=== PATIENT | male | born 1955 | race Caucasian/White ===

== ENCOUNTER 2020-02-05 08:45 | Outpatient (REF) | payer OTHER, SELFPAY ==
[2020-02-05 11:49] LABS: Estimated Average Glucose 134 mg/dL; Hemoglobin A1c % 6.3 %
[2020-02-05 11:59] LABS: Anion Gap 11 (12-20); Blood Urea Nitrogen 19 mg/dL (9-16); Calcium 8.9 mg/dL (8.4-10.2); Carbon Dioxide 30 mmol/L (22-29); Chloride 102 mmol/L (96-108); Estimated Glomerular Filt Rate > 60; Glucose Fasting 128 mg/dL (60-99); Potassium 4.2 mmol/l (3.3-5.1); Sodium 139 mmol/L (135-145)
[2020-02-05 12:05] LABS: Prostate Specific Antigen Scr 2.23 ng/mL (<0.05-4.0); TSH reflex Free T4 0.48 mIU/mL (0.32-4.0)
== END 2020-02-05 08:46 | disposition home or self-care (01) ==
LOC: HO.HMGCLDS 08:45
PROVIDERS: PCP Internal Medicine; Visit Provider Internal Medicine
DX: R73.9 Hyperglycemia, unspecified (principal); I10 Essential (primary) hypertension; Z00.00 Encounter for general adult medical examination without abnormal findings
CPT/HCPCS: 80048; 83036; 84153; 84443

== ENCOUNTER → 2020-02-14 07:38 | Outpatient (REF) | payer OTHER, SELFPAY ==
--- NOTE | 2020-02-14 07:42 | CA_ITS ---
Transthoracic Echocardiogram Patient (Last, First, Middle): Guille Mercado, Gender: Male Date of : 1955 Age: 64 Procedure Date: 02/14/2020 Procedure Type: Transthoracic Echocardiogram Location: OP Height: 180.34 cm Weight: 97.98 kg BSA: 2.18 m2 Heart Rate: bpm BP: 130 / 70 mmHg [place] Operator: ALDEN Payan MD: Yue Miller MD Symptoms: I48.91 - Unspecified atrial fibrillation Study Quality: Fair ECG Rhythm: Atrial Fibrillation Conclusions: - The left ventricular systolic function is low normal. The visually estimated ejection fraction is between 50-55%. - The left atrium is severely dilated. - There is mild to moderate mitral valve regurgitation. - There is mild tricuspid valve regurgitation. - Mild pulmonary hypertension is present. Findings Left Ventricle Normal left ventricular cavity size. There is mildly increased left ventricular wall thickness. The left ventricular systolic function is low normal. The visually estimated ejection fraction is between 50-55%. There is no evidence of regional wall motion abnormalities. Diastolic function is indeterminate on the basis of available data. Right Ventricle Normal right ventricular cavity size and systolic function. Atria The left atrium is severely dilated. The right atrium is moderately dilated. Aortic Valve There is a normal trileaflet aortic valve. There is no aortic valve stenosis. There is no aortic valve regurgitation. Mitral Valve There is mild anterior and posterior mitral leaflet thickening. The posterior mitral leaflet has restricted mobility. There is mild mitral annular calcification. There is mild to moderate mitral valve regurgitation. There is no mitral valve stenosis. Pulmonic Valve The pulmonic valve was not well visualized. Tricuspid Valve Normal tricuspid valve structure. There is mild tricuspid valve regurgitation. The right ventricular systolic pressure is 46 mmHg. Mild pulmonary hypertension is present. Great Vessels The aortic annulus, sinuses of valsalva, and asc aorta are normal in size. Venous The inferior vena cava is mildly dilated and collapses greater than 50% with inspiration. Pericardium/Pleural There is no evidence of pericardial effusion. Prior Study Comparison No prior study available for comparison. Measurements 2D Linear Measurements IVSd: 1.12 0.6-0.9/0.6-1.0 cm LVIDd: 5.29 3.9-5.3/4.2-5.9 cm LVIDd Index: 2.43 2.4-3.2/2.2-3.1 cm/m2 LVIDs: 3.85 2.0-3.6 cm LVPWd: 1.12 0.7-1.1 cm Ao Root: 3.40 2.1-3.5 cm LA Diam: 4.50 2.7-3.8/3.0-4.0 cm LAIDs Index: 2.06 1.5-2.3 cm/m2 LV Mass: 290.08 67-162/88-224 g LV Mass Index: 133.06 43-95/49-115 g/m2 LVOT Diam: 2.10 3.0+(-)1.3 cm 2D Systolic Function EF 4C: 51.40 >55% EF 2C: 50.70 >55% EF BiP: 51.70 >55% Mitral Valve MV VTI: 0.51 MV Pk Ruy: 2.12 MV Mn Ruy: 0.82 MV Pk Grad: 18.00 MV Mn Grad: 4.00 MVA Continuity: 1.30 Aortic Valve AoV Pk Ruy: 1.14 AoV Mn Ruy: 0.70 AoV VTI: 0.25 AoV Pk Grad: 5.00 Aov Mn Grad: 2.00 SONU Cont.VTI: 2.69 LVOT LVOT Pk Ruy: 0.86 LVOT Mn Ruy: 0.57 LVOT VTI: 0.19 LVOT Pk Grad: 3.00 LVOT Mn Grad: 1.00 LVOT Diam: 2.10 LVOT Area: 3.46 Tricuspid Valve TR Pk Ruy: 3.09 TR Pk Grad: 38.00 RA Press: 8.00 RVSP: 46.00 Great Vessels Aorta Ao Root-2D: 3.40 2.0-3.7 cm Ao Asc: 3.40 2.1-3.4 cm Ao Arch: 3.50 Updated in Other Vendor System with Status of Final Pete Saucedo MD electronically signed on 02/16/2020 1:57:19 PM with status of Final
== END ==
LOC: HO.CARD 07:38
PROVIDERS: Visit Provider Internal Medicine
DX: I48.91 Unspecified atrial fibrillation (principal)
CPT/HCPCS: 93306

== ENCOUNTER → 2020-02-26 13:39 | Outpatient (REF) | payer OTHER, SELFPAY ==
--- NOTE | 2020-02-26 13:41 | ECG_ITS ---
Hook-up date: 2020-02-26 13:53:00 Duration: 25:00:00 Test Indications: UNSPEC. AFIB Medications: 48176 QRS complexes 16 Ventricular ectopics which represent <1 % of total QRS comp. * Supraventricular ectopics which represent % of total QRS comp. * Paced QRS complexs which represent % of total QRS comp. VENTRICULAR ECTOPY 16 Isolated 0 Bigeminal Cycles 0 Couplets 0 Runs 0 Beats in Runs * Beats LONGEST at * BPM at :: -- * Beats FASTEST at * BPM at :: -- SUPRAVENTRICULAR ECTOPY * Isolated * Couplets * Runs * Beats in Runs * Beats LONGEST at * BPM at :: -- * Beats FASTEST at * BPM at :: -- HEART RATES 30 MIN at 02:29:59 2020-02-27 62 AVG 119 MAX at 17:07:51 2020-02-26 LONGEST RR 3.0400 secs at 03:56:07 2020-02-27 S-T LEVELS Channel 1 - 128 mm at 13:53:00 2020-02-26 - 128 mm at 13:53:00 2020-02-26 Channel 2 - 128 mm at 13:53:00 2020-02-26 - 128 mm at 13:53:00 2020-02-26 Channel 3 - 128 mm at 03:31:21 -- - 128 mm at 03:31:21 Underlying rhythm is atrial fibrillation; Average ventricular rate 62/mi; range 30-119/min; No significant tachycardic episodes; About 40% of the time, ventricular rate <60/min; Nighttime pauses noted; max 3 sec, but no significant daytime pauses; Patient did not return diary Referred By: Yue Miller Overread By: MARTINA CASTILLO
== END ==
LOC: HO.CARD 13:39
PROVIDERS: Visit Provider Internal Medicine
DX: I48.91 Unspecified atrial fibrillation (principal)
CPT/HCPCS: 93225; 93226

== ENCOUNTER → 2020-02-29 14:00 | Outpatient (BNVA) | payer OTHER, SELFPAY | PROVIDERS: PCP Internal Medicine; Visit Provider Physician Assistant Medical | DX: Z76.89 Persons encountering health services in other specified circumstances (principal) | CPT/HCPCS: G0296 ==

== ENCOUNTER 2020-03-28 13:18 | Outpatient (REF) | payer OTHER, SELFPAY ==
--- NOTE | ~2020-03-28 | CT_ITS ---
EXAMINATION: CT CHEST SCREENING CLINICAL INFORMATION: Smoking history COMPARISON: None. TECHNIQUE: Multidetector volumetric CT imaging of the chest is performed without contrast using low dose technique. Additional 2D coronal and sagittal reformatted images and axial 3D maximum intensity projection (MIP) images are generated on the CT workstation. This CT examination was performed using dose optimization techniques as appropriate, variously including the following: *Automated exposure control *Adjustment of mA and/or kV according to patient size (this includes techniques or standardized protocols for targeted exams where dose is matched to indication/reason for exam; i.e. extremities or head) *Use of iterative reconstruction technique DLP: 63 mGy-cm FINDINGS: LUNGS: There is evidence of emphysema. There is a 3 mm right upper lobe nodule axial image 117 series 5. There are 2 peripheral or subpleural 2 mm right upper lobe nodules axial image 134 and 141 series 5. MEDIASTINUM: The heart is slightly enlarged. There is mild coronary artery calcification. There is no pericardial effusion. The thoracic aorta is normal in caliber. There are small mediastinal lymph nodes. PLEURA: There is no pleural effusion. No pleural mass or thickening. AXILLA: No lymphadenopathy. UPPER ABDOMEN: Unremarkable OSSEOUS STRUCTURES: There are degenerative changes of the spine. CT/CT lung screening IMPRESSION: Mild emphysema. Small pulmonary nodules. Enlarged heart. Mild coronary artery calcification. ASSESSMENT: Lung-RADS category 2: Benign RECOMMENDATION: Annual low-dose chest CT follow-up in one year
== END 2020-03-28 13:19 | disposition home or self-care (01) ==
LOC: HO.CT 13:18
PROVIDERS: PCP Internal Medicine; Visit Provider Physician Assistant Medical
DX: Z12.2 Encounter for screening for malignant neoplasm of respiratory organs (principal); F17.210 Nicotine dependence, cigarettes, uncomplicated
CPT/HCPCS: 71271

== ENCOUNTER 2020-08-28 10:29 | Outpatient (REF) | payer OTHER, SELFPAY ==
[2020-08-28 11:32] LABS: Hematocrit 40.4 % (42-52); Hemoglobin 13.1 g/dl (14.0-18.0); Mean Corpuscular HGB Conc 32.4 g/dl (31.0-36.0); Mean Corpuscular Hemoglobin 27.5 pg (27.0-33.0); Mean Corpuscular Volume 84.7 fL (80-98); Mean Platelet Volume 11.9 fL (9.4-12.4); Platelet Count 112 X10*3/uL (160-400); Red Blood Count 4.77 X10*6/uL (4.60-5.80); Red Cell Distribution Width 13.8 % (11.0-16.0); White Blood Count 6.4 X10*3/uL (4.8-10.8)
[2020-08-28 11:36] LABS: Estimated Average Glucose 131 mg/dL; Hemoglobin A1c % 6.2 %
[2020-08-28 12:15] LABS: Alanine Aminotransferase 41 U/L (0-40); Albumin Level 4.1 g/dL (3.5-5.0); Alkaline Phosphatase 125 U/L (39-117); Anion Gap 13 (12-20); Aspartate Amino Transferase 34 U/L (5-37); Bilirubin Total 1.5 mg/dL (0.0-1.0); Blood Urea Nitrogen 17 mg/dL (9-16); C Reactive Protein 2.37 mg/dL (< or = 0.50); Carbon Dioxide 25 mmol/L (22-29); Chloride 103 mmol/L (96-108); Estimated Glomerular Filt Rate > 60; Glucose Random 104 mg/dL (60-115); Sodium 137 mmol/L (135-145); Total Protein 7.8 g/dL (6.5-8.0)
[2020-08-28 14:32] LABS: Glucose Urine UA NEG (NEG); Leukocyte Esterase Urine NEG (NEG); Nitrite Urine NEG (NEG); Specific Gravity - Urine 1.015 (1.005-1.025); Urine Blood NEG (NEG); Urine Ketones NEG (NEG); Urine Protein NEG (NEG-TRACE)
[2020-08-28 14:51] LABS: Appearance Urine CLEAR; Color Urine YELLOW
== END 2020-08-28 10:30 | disposition home or self-care (01) ==
LOC: HO.HMGCLDS 10:29
PROVIDERS: PCP Internal Medicine; Visit Provider Internal Medicine
DX: Z20.822 Contact with and (suspected) exposure to COVID-19 (principal); I10 Essential (primary) hypertension; I48.91 Unspecified atrial fibrillation; R73.9 Hyperglycemia, unspecified; M79.10 Myalgia, unspecified site
CPT/HCPCS: 80053; 81003; 83036; 85027; 86140; U0003; U0005

== ENCOUNTER 2020-08-31 11:16 | Emergency (ER) | payer OTHER, SELFPAY ==
--- NOTE | ~2020-08-31 | XR_ITS ---
EXAMINATION: XR chest 2V CLINICAL INFORMATION: Cough COMPARISON: No prior chest x-ray available in our system for comparison at the time of this dictation. TECHNIQUE: XR chest 2V Lungs and Ernestine: Both lungs are clear. Pleura: Normal. Costophrenic angles are sharp. No pneumothorax. Heart: The heart is normal in size. Mediastinum: The mediastinum is within normal limits.. Bones: Skeletal structures included are normal for patient's age. XR/XR chest 2V IMPRESSION: No radiographic evidence of pneumonia.
--- NOTE | ~2020-08-31 | CT_ITS ---
EXAMINATION: CT ANGIOGRAM ABDOMEN AND PELVIS CLINICAL INFORMATION: Rule out mesenteric ischemia, perforation, obstruction COMPARISON: None TECHNIQUE: Multiple axial images were obtained through the abdomen and pelvis following the administration of 80 mL of Omnipaque 350 intravenous contrast in arterial and venous phases. Coronal and sagittal reformatted MPR and MIPSimages were generated at the technologist workstation. This CT examination was performed using dose optimization techniques as appropriate, variously including the following: *Automated exposure control *Adjustment of mA and/or kV according to patient size (this includes techniques or standardized protocols for targeted exams where dose is matched to indication/reason for exam; i.e. extremities or head) *Use of iterative reconstruction technique DLP: 1037 mGy-cm FINDINGS: VASCULAR: The aorta is normal in caliber. There is no aneurysm, dissection or other acute aortic syndrome. There is moderate eccentric wall calcification as well as noncalcified plaque at the distal aspect of the abdominal aorta. Iliac bifurcation is patent. The right common iliac artery is ectatic and measures up to 1.5 cm in diameter. The bilateral common, internal, and external iliac arteries are well opacified and while there is scattered disease, there is no significant stenosis. While there is peripheral calcification of the common femoral arteries, there is no significant stenosis. The visualized profunda femoral arteries and superficial femoral arteries are patent and there is mild narrowing at the origin of the right superficial femoral artery secondary to noncalcified plaque appear Minimal narrowing at the origin of the celiac trunk which is otherwise well opacified. Superior mesenteric artery is widely patent from its origin. There is mild stenosis at the origin of the inferior mesenteric artery, though the vessels otherwise well opacified. There are single renal arteries to each kidney. There is minimal calcific disease at the origin of each renal artery, though there is no significant stenosis. On venous phase images there is an unremarkable appearance of the iliac veins, inferior vena cava and renal veins which are patent. Unremarkable appearance of the hepatic veins. Amanda mesenteric venous system is patent and without stenosis or thrombosis. NONVASCULAR: Lung bases are clear. No pleural fluid collections. Imaged heart is unremarkable. The liver is normal in size, shape and attenuation. No focal hepatic lesions are identified. No intra or extrahepatic duct dilation is identified. The gallbladder is unremarkable. There are no gallstones or pericholecystic inflammatory changes. Pancreas is unremarkable. The spleen is enlarged and measures up to 19 cm in the axial plane. Parenchymal enhancement is heterogeneous, possibly secondary to contrast timing. The adrenal glands are unremarkable. The kidneys are equal in overall size and enhancement. There is a 7.5 cm exophytic cyst arising from the lower pole of the left kidney with no internal features. There is a 1.2 cm simple parapelvic cyst at the lower pole of the left kidney. At the anterior aspect of the lower pole left kidney there is an indeterminate 1.9 cm low to intermediate attenuation structure with focal cortical thinning. An indeterminate 1 cm cystic structure originating from the anterior and a 1.5 cm cyst arises from the posterior aspect of the right lower pole.. Additional simple cysts are present at the upper pole of the right kidney. No calculi, hydronephrosis or hydroureter. No ureteral calculi are seen. Bladder is partially distended and normal in contour. Prostate is at the upper limits of normal for size and there are central coarse calcifications within the prostate. The distal esophagus and stomach are unremarkable. The small and large bowel are normal in caliber. There are no bowel wall inflammatory changes. There is a normal appendix. There is fecalization of the distal ileal contents, a nonspecific finding which can be seen with functional processes such as constipation. No pathologically enlarged abdominopelvic or retroperitoneal lymph nodes are seen. No free intraperitoneal fluid or air. No significant hernia of the abdominal wall. There is minor rectus diastases. There are [id number] multilevel degenerative changes of the imaged thoracolumbar spine. There is a probable 4 mm bone island within the right iliac crest (image 438, series 6). Moderate degenerative changes of osteoarthritis of the hips. No acute or aggressive bony abnormality is seen. CT/CT angio abdomen pelvis IMPRESSION: Patent arterial and venous vasculature of the abdomen and pelvis. No definite findings to suggest mesenteric ischemia. Specifically there are no evidence of vascular thrombosis, occlusion, portal venous gas or pneumatosis. There is splenomegaly with spleen measuring 19 cm in the axial plane. On venous phase enhancement is slightly heterogeneous, this could be secondary to contrast timing. Nonspecific fecalization of distal ileal contents which can be seen in the setting of functional processes such as constipation. There are indeterminate low-attenuation structures at the lower pole of each kidney measuring 1.9 cm on the left and 1 cm on the right. Further characterization with MR is recommended.
[2020-08-31 11:20] VITALS: BP 136/68; PULSE 73; RESP 18; TEMP 37.2; O2SAT 100; BMI 29.2
--- NOTE | 2020-08-31 11:56 | ECG_ITS ---
Test Reason : ABDOMINAL PAIN Blood Pressure : / mmHG Vent. Rate : 076 BPM Atrial Rate : 102 BPM P-R Int : 000 ms QRS Dur : 090 ms QT Int : 386 ms P-R-T Axes : 000 081 051 degrees QTc Int : 434 ms Atrial fibrillation Abnormal ECG No previous ECGs available Referred By: José Miguel Pedro Electronically Signed By:Murtaza Alvarado
--- NOTE | 2020-08-31 11:58 | ED.ABDPAIN ---
HPI - Abdominal Pain General Chief Complaint: Abdominal Pain Stated Complaint: severe abd pain Time Seen by Provider: 08/31/20 11:30 History of Present Illness HPI narrative: Patient complains of abdominal pain which he describes as severe for the last 5 or 6 days which is mostly in the mid abdominal region, there is no fever no chills no nausea no vomiting no diarrhea no dysuria, pain is not related to eating or drinking Patient saw primary doctor for this 2 days ago and labs were sent which were nondiagnostic Patient has history of atrial fibrillation and hypertension and does take Eliquis for his atrial fibrillation and is compliant with the medication He does drink occasionally but is not a regular drinker Related Data Previous Rx's Medication Instructions Recorded atenolol 25 mg tablet 25 mg PO DAILY #90 tab 04/15/20 apixaban 5 mg tablet 5 mg PO BID #180 tab 07/08/20 amlodipine 5 mg tablet 5 mg PO DAILY #90 tab 08/06/20 acetaminophen 1,000 mg PO QID PRN #30 tab 08/31/20 doxycycline hyclate 100 mg PO BID 7 Days #14 cap 08/31/20 oxycodone 5 mg PO Q6H PRN #10 tab 08/31/20 Allergies Allergy/AdvReac Type Severity Reaction Status Date / Time No Known Allergies Allergy Verified 08/31/20 11:20 Review of Systems Review of Systems Positive for abdominal pain Negatives are no fever no chills no dizziness no weakness no fainting no feeling faint no headache no chest pain no dysuria no frequency no nausea vomiting or diarrhea no black tarry stools no blood in the stool no blood in the urine no skin rashes no motor weakness no loss of sensation Yes all other systems are reviewed and are negative Physical Exam Vital Signs: Vital Signs: Last Vital Signs Temp 99.5 F 08/31/20 16:09 Pulse 76 08/31/20 16:09 Resp 20 08/31/20 16:09 BP 125/69 08/31/20 16:09 Pulse Ox 96 08/31/20 16:09 Body Mass Index 29.2 General appearance is no acute distress The eyes are anicteric without pallor The pharynx mucous membranes are moist, no redness swelling or exudate The neck is supple The chest is clear to auscultation bilateral with symmetric equal breath sounds Heart no murmur auscultated The abdomen had mild periumbilical mid abdomen tenderness without rebound or guarding The extremities full range of motion x4 without edema The skin no rashes no petechiae no purpura Neuro there is no gross motor or sensory deficit, he is A&O x3, conversation both expression and comprehension are normal, gait and balance are normal Course Course Course Narrative: Patient with AFib on Eliquis who complains of several days of abdominal pain with a nondiagnostic exam is to be scanned to rule out mesenteric ischemia, perforation, obstruction and his pain is treated with morphine and labs were sent Patient had normal white count of 5, hemoglobin hematocrit 13 and 39 Platelets were 86 Total bilirubin was 1.4, direct was 0.7 First troponin was 5.2, lactic acid was 1 point Patient spiked a fever while awaiting CT results of 100.4 and was given a dose of IV Zosyn CT came back without any evidence of mesenteric ischemia, appendix was normal, there was no obstruction or perforation and no acute findings There were 2 low-attenuation structures at the lower pole of each kidney which were not clearly characterized and recommendation is outpatient MR to further evaluate them , case was discussed with Dr. Madsen for patient with abdominal pain and fever with non diagnostic CT scan and repeat abdominal exam very mild periumbilical tenderness, no vomiting no dysuria Chest x-ray was negative, COVID test was negative Case was discussed with attending physician Cale who recommended put the patient on doxycycline, send lab test to evaluate for tick-borne disease and well-appearing patient is discharged MDM - Abdominal Pain Lab Data Result diagrams: 08/31/20 12:23 08/31/20 12:23 Labs: Lab Results 08/31/20 08/31/20 08/31/20 Range/Units 12:23 12:23 12:23 WBC 5.2 (4.8-10.8) X10*3/uL RBC 4.92 (4.60-5.80) X10*6/uL Hgb 13.4 L (14.0-18.0) g/dl Hct 39.9 L (42-52) % MCV 81.1 (80-98) fL MCH 27.2 (27.0-33.0) pg MCHC 33.6 (31.0-36.0) g/dl RDW 14.0 (11.0-16.0) % Plt Count 86 L (160-400) X10*3/uL MPV 11.1 (9.4-12.4) fL Immature Gran % (Auto) 0.2 (0.0-0.4) % Neut % (Auto) 62.8 (45-73) % Lymph % (Auto) 20.2 (20-40) % Swisher % (Auto) 16.2 H (2-11) % Eos % (Auto) 0.2 (0-4) % Baso % (Auto) 0.4 (0-2) % Lymph # (Auto) 1.1 L (1.2-4.9) X10*3/uL Swisher # (Auto) 0.9 (0.1-1.2) X10*3/uL Eos # (Auto) 0.0 (0.0-0.4) X10*3/uL Baso # (Auto) 0.0 (0.0-0.2) X10*3/uL Abs Immat Gran (auto) 0.01 (0.00-0.03) X10*3/uL Absolute Neuts (auto) 3.3 (2.0-8.3) X10*3/uL Absolute Nucleated RBC 0.000 (0.0-0.012) X10*3/uL Nucleated RBC % (auto) 0.0 (0.0-0.2) /100WBC Smear Tech's Comments VERIFIED Sodium 133 L (135-145) mmol/L Potassium 4.0 (3.3-5.1) mmol/L Chloride 101 (96-108) mmol/L Carbon Dioxide 24 (22-29) mmol/L Anion Gap 12 (12-20) BUN 17 H (9-16) mg/dL Creatinine 0.86 (0.5-1.4) mg/dL Estim Creat Clear Calc 99.5 Estimated GFR > 60 Random Glucose 123 H (60-115) mg/dL Lactic Acid (0.5-2.0) mmol/L Calcium 8.4 D (8.4-10.2) mg/dL Total Bilirubin 1.4 H (0.0-1.0) mg/dL Direct Bilirubin 0.7 H (0.0-0.5) mg/dL AST 33 (5-37) U/L ALT 29 (0-40) U/L Alkaline Phosphatase 113 (39-117) U/L Lactate Dehydrogenase 447 H Cancelled (118-273) U/L Total Creatine Kinase 75 (38-174) U/L Troponin I High Sens (<3.5-35.0) ng/L Total Protein 7.4 (6.5-8.0) g/dL Albumin 3.6 (3.5-5.0) g/dL Lipase 19 (8-78) U/L Urine Color Urine Appearance Urine pH (5.0-8.0) Ur Specific [place] (1.005-1.025) Urine Protein (NEG-TRACE) MG/DL Urine Glucose (UA) (NEG) MG/DL Urine Ketones (NEG) MG/DL Urine Blood (NEG) Urine Nitrite (NEG) Ur Leukocyte Esterase (NEG) Urine RBC (0) /HPF Urine WBC (0-4) /HPF Ur Squamous Epith Cells /LPF Urine Bacteria /LPF Urine Mucus /LPF COVID-19 ([facility]) (Negative) COVID-19 Clin Com 08/31/20 08/31/20 08/31/20 Range/Units 12:23 13:38 13:43 WBC (4.8-10.8) X10*3/uL RBC (4.60-5.80) X10*6/uL Hgb (14.0-18.0) g/dl Hct (42-52) % MCV (80-98) fL MCH (27.0-33.0) pg MCHC (31.0-36.0) g/dl RDW (11.0-16.0) % Plt Count (160-400) X10*3/uL MPV (9.4-12.4) fL Immature Gran % (Auto) (0.0-0.4) % Neut % (Auto) (45-73) % Lymph % (Auto) (20-40) % Swisher % (Auto) (2-11) % Eos % (Auto) (0-4) % Baso % (Auto) (0-2) % Lymph # (Auto) (1.2-4.9) X10*3/uL Swisher # (Auto) (0.1-1.2) X10*3/uL Eos # (Auto) (0.0-0.4) X10*3/uL Baso # (Auto) (0.0-0.2) X10*3/uL Abs Immat Gran (auto) (0.00-0.03) X10*3/uL Absolute Neuts (auto) (2.0-8.3) X10*3/uL Absolute Nucleated RBC (0.0-0.012) X10*3/uL Nucleated RBC % (auto) (0.0-0.2) /100WBC Smear Tech's Comments Sodium (135-145) mmol/L Potassium (3.3-5.1) mmol/L Chloride (96-108) mmol/L Carbon Dioxide (22-29) mmol/L Anion Gap (12-20) BUN (9-16) mg/dL Creatinine (0.5-1.4) mg/dL Estim Creat Clear Calc Estimated GFR Random Glucose (60-115) mg/dL Lactic Acid 1.0 (0.5-2.0) mmol/L Calcium (8.4-10.2) mg/dL Total Bilirubin (0.0-1.0) mg/dL Direct Bilirubin (0.0-0.5) mg/dL AST (5-37) U/L ALT (0-40) U/L Alkaline Phosphatase (39-117) U/L Lactate Dehydrogenase (118-273) U/L Total Creatine Kinase (38-174) U/L Troponin I High Sens 5.2 (<3.5-35.0) ng/L Total Protein (6.5-8.0) g/dL Albumin (3.5-5.0) g/dL Lipase (8-78) U/L Urine Color DARK YELLOW Urine Appearance HAZY Urine pH 6.0 (5.0-8.0) Ur Specific [place] 1.010 (1.005-1.025) Urine Protein 1+ H (NEG-TRACE) MG/DL Urine Glucose (UA) NEG (NEG) MG/DL Urine Ketones NEG (NEG) MG/DL Urine Blood 1+ H (NEG) Urine Nitrite NEG (NEG) Ur Leukocyte Esterase NEG (NEG) Urine RBC 1-4 (0) /HPF Urine WBC 0 (0-4) /HPF Ur Squamous Epith Cells TRACE /LPF Urine Bacteria NONE /LPF Urine Mucus TRACE /LPF COVID-19 ([facility]) (Negative) COVID-19 Clin Com 07/18/21 Range/Units 15:13 WBC (4.8-10.8) X10*3/uL RBC (4.60-5.80) X10*6/uL Hgb (14.0-18.0) g/dl Hct (42-52) % MCV (80-98) fL MCH (27.0-33.0) pg MCHC (31.0-36.0) g/dl RDW (11.0-16.0) % Plt Count (160-400) X10*3/uL MPV (9.4-12.4) fL Immature Gran % (Auto) (0.0-0.4) % Neut % (Auto) (45-73) % Lymph % (Auto) (20-40) % Swisher % (Auto) (2-11) % Eos % (Auto) (0-4) % Baso % (Auto) (0-2) % Lymph # (Auto) (1.2-4.9) X10*3/uL Swisher # (Auto) (0.1-1.2) X10*3/uL Eos # (Auto) (0.0-0.4) X10*3/uL Baso # (Auto) (0.0-0.2) X10*3/uL Abs Immat Gran (auto) (0.00-0.03) X10*3/uL Absolute Neuts (auto) (2.0-8.3) X10*3/uL Absolute Nucleated RBC (0.0-0.012) X10*3/uL Nucleated RBC % (auto) (0.0-0.2) /100WBC Smear Tech's Comments Sodium (135-145) mmol/L Potassium (3.3-5.1) mmol/L Chloride (96-108) mmol/L Carbon Dioxide (22-29) mmol/L Anion Gap (12-20) BUN (9-16) mg/dL Creatinine (0.5-1.4) mg/dL Estim Creat Clear Calc Estimated GFR Random Glucose (60-115) mg/dL Lactic Acid (0.5-2.0) mmol/L Calcium (8.4-10.2) mg/dL Total Bilirubin (0.0-1.0) mg/dL Direct Bilirubin (0.0-0.5) mg/dL AST (5-37) U/L ALT (0-40) U/L Alkaline Phosphatase (39-117) U/L Lactate Dehydrogenase (118-273) U/L Total Creatine Kinase (38-174) U/L Troponin I High Sens (<3.5-35.0) ng/L Total Protein (6.5-8.0) g/dL Albumin (3.5-5.0) g/dL Lipase (8-78) U/L Urine Color Urine Appearance Urine pH (5.0-8.0) Ur Specific [place] (1.005-1.025) Urine Protein (NEG-TRACE) MG/DL Urine Glucose (UA) (NEG) MG/DL Urine Ketones (NEG) MG/DL Urine Blood (NEG) Urine Nitrite (NEG) Ur Leukocyte Esterase (NEG) Urine RBC (0) /HPF Urine WBC (0-4) /HPF Ur Squamous Epith Cells /LPF Urine Bacteria /LPF Urine Mucus /LPF COVID-19 ([facility]) Negative (Negative) COVID-19 Clin Com See Note Discharge Plan Discharge Clinical Impression: Abdominal pain, Fever Patient Disposition: Home, Self-Care Additional Instructions: Our workup today did not reveal an obvious cause of infection COVID test was negative, urine test did not show any sign of infection We did find that your platelets were low at 86 so this needs to be retested in 2-3 days at the primary doctor's office We are putting you on doxycycline antibiotic for possible tick-borne infection and we are checking for tick-borne disease with a test that comes back in several days we will call you if it is positive Return to the ER any time for uncontrolled pain, increased pain, vomiting, high fever, pain with urination, any worse condition or any concerns You should be re-evaluated at her doctor's office in 2-3 days if pain continues, or if your doctor is unavailable return to the ER in 2-3 days for recheck You can use Tylenol and if needed narcotic oxycodone for pain An incidental finding on the CT scan showed 2 areas that they were not certain about near your kidney and they recommended possible further evaluation with MRI so this is something to follow with her doctor, it is not connected to the pain you are experiencing today Prescriptions: New doxycycline hyclate 100 mg capsule 100 mg PO BID 7 Days Qty: 14 RF: 0 oxycodone 5 mg tablet 5 mg PO Q6H PRN (Reason: pain) Qty: 10 RF: 0 acetaminophen 500 mg tablet 1,000 mg PO QID PRN (Reason: pain) Qty: 30 RF: 0 No Action Eliquis 5 mg tablet 5 mg PO BID Qty: 180 RF: 3 amlodipine 5 mg tablet 5 mg PO DAILY Qty: 90 RF: 3 atenolol 25 mg tablet 25 mg PO DAILY Qty: 90 RF: 3 PMFSH Past Medical History COUNT INCLUDES THE [facility] Narrative: Patient does have history of atrial fibrillation and does take Eliquis and claims he is compliant with the Eliquis Medical History A-fib HTN (hypertension) Hyperglycemia Mitral regurgitation Myalgia Nicotine dependence, cigarettes, uncomplicated Pain in lower back Tobacco consumption Family History Family History Father HTN (hypertension) Mother No problems noted. Sister HTN (hypertension) Social History Social History (Updated 02/29/20 @ 13:52 by Suni Coulter PA-C) Household Members Other:: lives with a partner, exercise, 2 daughters Housing: House Alcohol intake: current Alcohol intake frequency: holidays/special occasions only Patient Tobacco Use Status: Former Tobacco user Cigarettes Per Day: 10 Years Smoked: 45 (onset 19yo) Smoked in Last 30 Days: Yes e-Cigarette/Vaping Use: Never Used Use of substances other than those prescribed or required for medical reasons: No Advance Directives: Yes Advance Directives Information Provided: Yes Advance Directives on File: No service: No Current occupational status: employed
[2020-08-31] MEDS: Morphine Sulfate 4 MG/ML CARTRIDGE IVPUSH ×2 (12:02→14:38)
[2020-08-31 12:33] LABS: Basophils Percent Auto 0.4 % (0-2); Eosinophils Percent Auto 0.2 % (0-4); Hematocrit 39.9 % (42-52); Hemoglobin 13.4 g/dl (14.0-18.0); MANUAL DIFF FLAG SCAN; Mean Corpuscular HGB Conc 33.6 g/dl (31.0-36.0); PLT CLUMP 1; SCAN SMEAR FLAG 1
[2020-08-31 12:35] LABS: Imm Gran Abs Auto 0.01 X10*3/uL (0.00-0.03); Imm Gran Pct Auto 0.2 % (0.0-0.4); Lymphocytes Absolute Auto 1.1 X10*3/uL (1.2-4.9); Lymphocytes Percent Auto 20.2 % (20-40); Mean Corpuscular Hemoglobin 27.2 pg (27.0-33.0); Mean Corpuscular Volume 81.1 fL (80-98); Mean Platelet Volume 11.1 fL (9.4-12.4); Monocytes Absolute Auto 0.9 X10*3/uL (0.1-1.2); Monocytes Percent Auto 16.2 % (2-11); Neutrophils Absolute Auto 3.3 X10*3/uL (2.0-8.3); Neutrophils Percent Auto 62.8 % (45-73); Red Blood Count 4.92 X10*6/uL (4.60-5.80); White Blood Count 5.2 X10*3/uL (4.8-10.8)
[2020-08-31 12:40] VITALS: BP 119/65; PULSE 71; RESP 22; TEMP 37.7; O2SAT 95
[2020-08-31 13:00] LABS: Platelet Count 86 X10*3/uL (160-400)
[2020-08-31 13:01] LABS: SLIDE REVIEW VERIFIED
[2020-08-31 13:03] LABS: Alanine Aminotransferase 29 U/L (0-40); Albumin Level 3.6 g/dL (3.5-5.0); Alkaline Phosphatase 113 U/L (39-117); Anion Gap 12 (12-20); Aspartate Amino Transferase 33 U/L (5-37); Bilirubin Direct 0.7 mg/dL (0.0-0.5); Bilirubin Total 1.4 mg/dL (0.0-1.0); Blood Urea Nitrogen 17 mg/dL (9-16); Calcium 8.4 mg/dL (8.4-10.2); Carbon Dioxide 24 mmol/L (22-29); Chloride 101 mmol/L (96-108); Creatinine Clr Calc Pharmacy 99.5; Estimated Glomerular Filt Rate > 60; Glucose Random 123 mg/dL (60-115); Lactate Dehydrogenase 447 U/L (118-273); Lipase 19 U/L (8-78); Sodium 133 mmol/L (135-145); Total Protein 7.4 g/dL (6.5-8.0)
[2020-08-31 13:08] LABS: Troponin-I High Sensitivity 5.2 ng/L (<3.5-35.0)
[2020-08-31] MEDS: iohexoL 350 MG/ML 100 ML INFUS..BTL IV (13:20)
[2020-08-31 13:52] LABS: Glucose Urine UA NEG (NEG); Leukocyte Esterase Urine NEG (NEG); Nitrite Urine NEG (NEG); Urine Blood 1+ (NEG); Urine Ketones NEG (NEG); Urine Protein 1+ MG/DL (NEG-TRACE)
[2020-08-31 13:53] LABS: Appearance Urine HAZY; Color Urine DARK YELLOW
[2020-08-31 14:15] LABS: Mucus Urine TRACE /LPF; Squamous Epithelial Cell Urine TRACE /LPF; WBC Urine 0 /HPF (0-4)
[2020-08-31 14:32] VITALS: PULSE 72; RESP 19
[2020-08-31 14:43] VITALS: TEMP 39
[2020-08-31 14:54] VITALS: BP 126/70; PULSE 78; RESP 22; TEMP 38; O2SAT 95
[2020-08-31] MEDS: Acetaminophen 325 MG TABLET 650 MG PO (14:55)
[2020-08-31] MEDS: 0.9 % Sodium Chloride 1,000 ML 999 ML IVCONT (14:59)
[2020-08-31] MEDS: Piperacillin Sodium/Tazobactam 3.375 GM in 0.9 % Sodium Chloride 50 ML IV (15:33)
[2020-08-31 15:41] LABS: COVID-19 Test Negative (Negative); IDNOW Serial# 9DD0AD1C
[2020-08-31 16:09] VITALS: BP 125/69; PULSE 76; RESP 20; TEMP 37.5; O2SAT 96
--- NOTE | 2020-08-31 16:11 | PC.NURSE ---
Alex STORM in room, explained to pt result of CT as normal and that pt will be d/c home with oral pain medication and antibiotic. initial fluid bag not complete prior to this finding, vitals T 99.5, BP 125/69, P 76, RR 20 and SaO2 96% on room air. pt aware and ok with plan to d/c hoome and follow-up with PCP.
[2020-09-05 22:57] LABS: Lyme Blot 6.56 index
[2020-09-08 09:17] LABS: Lyme Abs Screen POSITIVE
[2020-09-11 16:43] LABS: 18 KD (IgG) Band NON-REACTIVE; 23 KD (IgG) Band NON-REACTIVE; 23 KD (IgM) Band REACTIVE; 28 KD (IgG) Band NON-REACTIVE; 30 KD (IgG) Band NON-REACTIVE; 39 KD (IgM) Band NON-REACTIVE; 41 KD (IgM) Band REACTIVE; 45 KD (IgG) Band NON-REACTIVE; 58 KD (IgG) Band NON-REACTIVE; 66 KD (IgG) Band NON-REACTIVE; 93 KD (IgG) Band NON-REACTIVE; Lyme IgG Blot Interp NEGATIVE (NEGATIVE); Lyme IgM Blot Interp POSITIVE (NEGATIVE)
[2020-09-17 23:06] LABS: A. Phagocytophilum Ab IgG <1:64 (<1:64); A. Phagocytophilum Ab IgM <1:20 (<1:20); E. Chaffeensis Ab IgG <1:64 (<1:64); E. Chaffeensis Ab IgM <1:20 (<1:20)
== END 2020-08-31 16:44 | disposition home or self-care (01) ==
PROVIDERS: Physician Assistant; Physician Assistant Medical; Emergency Provider Emergency Medicine; PCP Internal Medicine
DX: R10.9 Unspecified abdominal pain (principal); R50.9 Fever, unspecified; I48.91 Unspecified atrial fibrillation; Z20.822 Contact with and (suspected) exposure to COVID-19; Z79.899 Other long term (current) drug therapy; Z79.01 Long term (current) use of anticoagulants
CPT/HCPCS: 36415; 71046; 74174; 80048; 80076; 81001; 82550; 83605; 83615; 83690; 84484; 85025; 86617; 86618; 86666; 87040; 87147; 87205; 87635; 93005; 96361; 96365; 96375; 99285; J2270; J2543; Q9967

== ENCOUNTER 2020-09-25 13:14 | Outpatient (REF) | payer OTHER, SELFPAY ==
[2020-09-25 14:05] LABS: Hematocrit 40.7 % (42-52); Mean Corpuscular HGB Conc 31.9 g/dl (31.0-36.0); Mean Corpuscular Hemoglobin 27.5 pg (27.0-33.0); Mean Platelet Volume 10.6 fL (9.4-12.4); Platelet Count 155 X10*3/uL (160-400); Red Blood Count 4.73 X10*6/uL (4.60-5.80); Red Cell Distribution Width 17.2 % (11.0-16.0); White Blood Count 7.1 X10*3/uL (4.8-10.8)
[2020-09-25 14:17] LABS: C Reactive Protein 0.37 mg/dL (< or = 0.50)
[2020-09-25 14:47] LABS: Erythrocyte Sedimentation Rate 4 MM/HR (0-15)
== END 2020-09-25 13:15 | disposition home or self-care (01) ==
LOC: HO.HMGCLDS 13:14
PROVIDERS: PCP Internal Medicine; Visit Provider Internal Medicine
DX: R10.9 Unspecified abdominal pain (principal)
CPT/HCPCS: 36415; 85027; 85652; 86140

== ENCOUNTER → 2020-11-04 11:23 | Outpatient (BNVA) | payer OTHER, SELFPAY | PROVIDERS: PCP Internal Medicine; Visit Provider Urology ==

== ENCOUNTER → 2020-11-12 14:22 | Outpatient (BNVA) | payer OTHER, SELFPAY | PROVIDERS: PCP Internal Medicine; Referring Provider Internal Medicine; Visit Provider Nurse Practitioner Family ==

== ENCOUNTER → 2020-12-22 08:58 | Outpatient (BNVA) | payer OTHER, SELFPAY | PROVIDERS: Referring Provider Nurse Practitioner Family; Visit Provider Internal Medicine Cardiovascular Disease | DX: Z01.810 Encounter for preprocedural cardiovascular examination (principal); I48.91 Unspecified atrial fibrillation; I10 Essential (primary) hypertension | CPT/HCPCS: 93005 ==

== ENCOUNTER 2020-12-25 09:07 | Day surgery (SDC) | payer OTHER, SELFPAY ==
[2020-12-18 15:37] VITALS: BMI 29.8
--- NOTE | 2020-12-25 09:11 | P.HPSUR_ITS ---
Pre-Procedural Eval Section A Date of Service: 12/25/20 Section B Chief Complaint: screening Relevant Family History (Specify if Yes): No Relevant Social History: Tobacco Use Present Medications: see Short Stay Collaborative assessment Medical History: Significant History (A-fib Constipation HTN (hypertension) Hyperglycemia Mitral regurgitation Myalgia Nicotine dependence, cigarettes, uncomplicated Pain in lower back Renal cyst, acquired, left Tobacco consumption) History of Previous Operations: Relevant previous surgery/procedure and date(s) (colonoscopy) Allergies: Allergies Allergy/AdvReac Type Severity Reaction Status Date / Time No Known Allergies Allergy Verified 12/22/20 09:00 Review of Systems Sugical H&P ROS: Negative: Constitution, Cardiovascular, Respiratory, Neurological, Psychiatric, Hem-Onc, Allergic/Immunologic, Gastrointestinal, Gen itourinary, Musculoskeletal, Integumentary, Endocrine and Eyes/Ears/Nose/Throat Exam Surgical H&P Exam: Normal: HEENT, Normal: Heart, Normal: Lungs, Normal: Extremities, Normal: Abdomen, Normal: Skin and Normal: Neurological Plan Diagnosis/Plan: Unchanged I have reviewed the history and physical and performed a pertinent physical examination on my patient. No changes have occurred unless specified.
[2020-12-25 09:32] VITALS: BP 159/84; PULSE 59; RESP 16; TEMP 36.8; O2SAT 98
--- NOTE | 2020-12-25 09:41 | HO.ANESPROP2 ---
[facility] Active Problems Active Problems: All Active Problems (Updated 12/22/20 @ 09:33 by Murtaza Alvarado MD) Preop cardiovascular exam (Acute) Tobacco consumption (Acute) Annual physical exam (Acute) Abdominal pain (Acute) Fever (Acute) Constipation (Acute) Renal cyst, acquired, left (Acute) Myalgia (Acute) Nicotine dependence, cigarettes, uncomplicated (Acute) Mitral regurgitation (Acute) Pain in lower back (Acute) A-fib (Acute) Hyperglycemia (Acute) HTN (hypertension) (Acute) Past Medical History Medical History A-fib Constipation HTN (hypertension) Hyperglycemia Lyme disease Mitral regurgitation Myalgia Nicotine dependence, cigarettes, uncomplicated Pain in lower back Renal cyst, acquired, left Functional capacity: independent ambulation Family History Family History Father HTN (hypertension) Mother No problems noted. Sister HTN (hypertension) Family history of problems with anesthesia: No Surgical History Surgical History Hx of colonoscopy History of Problems with Anesthesia: No Social History Social History Household Members Other:: lives with a partner, exercise, 2 daughters Housing: House Are you a primary resident care provider to a significant other at home: No Do you presently have visiting nurse or other home services: No Alcohol intake: current Alcohol intake frequency: a few times a month Patient Tobacco Use Status: Current everyday Tobacco user Tobacco use type: Cigarette Cigarettes Per Day: 5 Years Smoked: 45 e-Cigarette/Vaping Use: Never Used Use of substances other than those prescribed or required for medical reasons: No Have you been hit, kicked, punched, or otherwise hurt by someone within the past year? If so, by whom?: No Are you DNR?: No Advance Directives: No Advance Directives Information Provided: Yes (informational brochure mailed) Advance Directives on File: No Recently lost weight without trying: No Eating poorly because of decreased appetite: No Nutrition Risks: No Nutritional Risk service: No Current occupational status: employed Meds Allergies Allergy/AdvReac Type Severity Reaction Status Date / Time No Known Allergies Allergy Verified 12/25/20 09:28 Active Medications: Current Medications Lactated Ringer's (Lr) 1,000 mls @ 50 mls/hr IVCONT .Q20H CALRK Exam Exam Date and Time: December 25, 2020 0941 Height,Weight and Vital Signs: Height 5 ft 11 in Weight 97.069 kg Last Vital Signs Temp 98.3 F 12/25/20 09:32 Pulse 59 12/25/20 09:32 Resp 16 12/25/20 09:32 BP 159/84 H 12/25/20 09:32 Pulse Ox 98 12/25/20 09:32 Airway TM Dist: >3cm Neck ROM: Full Heart: RRR Lungs: CTA Assessment and Plan Final Anesthetic Review Family History of Problems with Anesthesia: No History of Problems with Anesthesia: No ASA Class: II Final Preanesthetic Review: No Changes in Pt Med Stat Assessment/Block/Sedation in SS: Assess/Block/Sedation-SS
[2020-12-25] MEDS: Lactated Ringers 1,000 ML 50 ML IVCONT (09:44)
--- NOTE | 2020-12-25 09:46 | PC.NURSE ---
Patient states he drank 4 oz of black coffee this morning at 0700. He also states he has been drinking water (total of 4oz) in small sips this AM. Last sip was around 0900. Dr. Patricia at bedside and made aware. No new orders. Okay to proceed with procedure.
--- NOTE | 2020-12-25 10:21 | P.BOP_ITS ---
Brief Operative Note Date of Service: 12/25/20 Pre-op diagnosis: colon screening Post-op diagnosis: same Procedure: see op note Surgeon: Fredrick Jones MD Anesthesia: MAC Was an Health Outreach Worker used for this Procedure?: No Estimated blood loss (mL): 0 Condition: stable Disposition: PACU
--- NOTE | 2020-12-25 10:22 | P.OP_ITS ---
Operative Note Operative Note Date of Service: 12/25/20 Narrative: Operative Information Procedure Description: Colonoscopy COLONOSCOPY Instrument: Olympus variable stiffness pediatric scope 190L Colonoscopy Monitoring: Vital signs and clinical assessment, continuous EKG monitoring, Pulse oximetry, Carbon Dioxide monitoring and blood pressure monitoring were done throughout the procedure. Colon withdrawal time was 12 minutes. Procedure: The patient was placed in the left lateral decubitis position and pre-procedure medications were administered. After a digital rectal examination of the ano-rectum, the video colonoscope was inserted into the rectum and advanced through the colon to the cecum/TI. The colonoscope was slowly withdrawn in a retrograde panoramic fashion and the colon mucosa was carefully examined including a retroflexed view of the rectum. Findings and interventions are described below. Procedure Difficulty: easy Findings: Terminal Ileum-normal Cecum: 10 mm sessile polyp removed with cold snare Ascending Colon: 10-12 mm sessile polyp removed with cold snare Transverse Colon -normal Descending Colon: 6-7 mm sessile polyp removed with forceps Sigmoid Colon: x 2 sessile polyps 7-9 mm, one removed with forceps and the other with cold snare Rectum: Retroflexion with large internal hemorrhoids, grade II Anorectum - normal Colon preparation: [place] Bowel Preparation Scale Right colon; 2 Transverse colon: 2 Left colon; 2 (0 = Unprepared colon segment with mucosa not seen due to solid stool that cannot be cleared. 1 = Portion of mucosa of the colon segment seen, but other areas of the colon segment not well seen due to staining, residual stool and/or opaque liquid. 2 = Minor amount of residual staining, small fragments of stool and/or opaque liquid, but mucosa of colon segment seen well. 3 = Entire mucosa of colon segment seen well with no residual staining, small fragments of stool or opaque liquid) Impression and Post Procedure Diagnosis: polyps internal hemorrhoids Plan: High fiber diet leaflet Avoid straining at stool, epsom salts and sitz bath, anusol supps or cream Repeat Colonoscopy in 3-5 years depending on pathology or earlier if clinically indicated if hemorrhoids problematic then can refer to surgery Above findings were reviewed with the patient and relevant handouts were provided if indicated.
[2020-12-25 10:30] VITALS: BP 117/57; PULSE 58; RESP 16; TEMP 36.1; O2SAT 96
[2020-12-25 10:45] VITALS: BP 105/67; PULSE 58; RESP 18; TEMP 36.3; O2SAT 97
--- NOTE | 2020-12-25 12:39 | HO.POSTANES ---
Post Anesthesia Evaluation Post Anesthesia Evaluation Vital Signs: Vital Signs Temp Pulse Resp BP Pulse Ox 12/25/20 10:45 97.3 F 58 18 105/67 97 12/25/20 10:30 97 F 58 16 117/57 L 96 12/25/20 09:32 98.3 F 59 16 159/84 H 98 Anesthesia: Monitored Mental Status: Awake Pain Control: Satisfactory Nausea/Vomiting: None Hydration: Adequate Anesthesia-Related Issues: No Anes. Related Issues
== END 2020-12-25 11:20 | disposition home or self-care (01) ==
PROVIDERS: PCP Internal Medicine; Visit Provider Internal Medicine Gastroenterology
PROC: 0DJD8ZZ Inspection of Lower Intestinal Tract, Via Natural or Artificial Opening Endoscopic (ICD-10-PCS; CPT 45378; principal; 2020-12-25 10:10)
DX: Z12.11 Encounter for screening for malignant neoplasm of colon (principal); D12.5 Benign neoplasm of sigmoid colon; K63.5 Polyp of colon; K64.1 Second degree hemorrhoids; I48.91 Unspecified atrial fibrillation; I34.0 Nonrheumatic mitral (valve) insufficiency; Z79.01 Long term (current) use of anticoagulants; I10 Essential (primary) hypertension; N28.1 Cyst of kidney, acquired; M79.10 Myalgia, unspecified site; F17.210 Nicotine dependence, cigarettes, uncomplicated; Z79.899 Other long term (current) drug therapy
CPT/HCPCS: 45385; 45380; 88305

== ENCOUNTER → 2021-01-07 08:21 | Outpatient (BNVA) | payer OTHER, SELFPAY | PROVIDERS: PCP Internal Medicine; Referring Provider Internal Medicine; Visit Provider Nurse Practitioner Family ==

== ENCOUNTER 2021-06-08 06:23 | Outpatient (REF) | payer OTHER, SELFPAY ==
[2021-06-08 12:07] LABS: Hematocrit 47.4 % (42.0-52.0); Hemoglobin 15.3 g/dl (14.0-18.0); Mean Corpuscular HGB Conc 32.3 g/dl (31.0-36.0); Mean Corpuscular Hemoglobin 27.6 pg (27.0-33.0); Mean Corpuscular Volume 85.4 fL (80.0-98.0); Mean Platelet Volume 11.4 fL (9.4-12.4); Platelet Count 195 X10*3/uL (160-400); Red Blood Count 5.55 X10*6/uL (4.60-5.80); Red Cell Distribution Width 13.2 % (11.0-16.0); White Blood Count 6.8 X10*3/uL (4.8-10.8)
[2021-06-08 12:09] LABS: Estimated Average Glucose 131 mg/dL; Hemoglobin A1c % 6.2 %
[2021-06-08 12:27] LABS: Alanine Aminotransferase 30 U/L (0-40); Albumin Level 4.3 g/dL (3.5-5.0); Alkaline Phosphatase 83 U/L (39-117); Anion Gap 10 (12-20); Appearance Urine CLOUDY; Aspartate Amino Transferase 30 U/L (5-37); Blood Urea Nitrogen 18 mg/dL (9-16); Calcium 9.2 mg/dL (8.4-10.2); Carbon Dioxide 27 mmol/L (22-29); Chloride 104 mmol/L (96-108); Cholesterol 188 mg/dL; Color Urine YELLOW; Estimated Glomerular Filt Rate > 60; Glucose Fasting 140 mg/dL (60-99); Glucose Urine UA NEG (NEG); HDL Cholesterol 38 mg/dL; LDL Cholesterol Calculated 140 mg/dl; Leukocyte Esterase Urine NEG (NEG); Nitrite Urine NEG (NEG); Sodium 137 mmol/L (135-145); Specific Gravity - Urine >= 1.030 (1.005-1.025); Total Protein 7.5 g/dL (6.5-8.0); Triglycerides 51 mg/dL; Urine Blood NEG (NEG); Urine Ketones NEG (NEG); Urine Protein NEG (NEG-TRACE)
[2021-06-08 12:29] LABS: Prostate Specific Antigen Scr 2.64 ng/mL (<0.05-4.0)
[2021-06-08 12:39] LABS: Creatinine Urine 165.03 mg/dL; Microalbum/Creatinine Ratio Ur 27.2 ug/mg cr
[2021-06-08 14:16] LABS: Amorphous Sediment Urine 4+ /LPF; RBC Urine 0-2 /HPF (0); WBC Urine 0-2 /HPF (0-4)
== END 2021-06-08 06:24 | disposition home or self-care (01) ==
LOC: HO.HMGCLDS 06:23
PROVIDERS: Visit Provider Internal Medicine
DX: Z00.00 Encounter for general adult medical examination without abnormal findings (principal); Z12.5 Encounter for screening for malignant neoplasm of prostate; I48.91 Unspecified atrial fibrillation; F17.210 Nicotine dependence, cigarettes, uncomplicated
CPT/HCPCS: 36415; 80053; 80061; 81001; 82043; 83036; 84153; 85027

== ENCOUNTER → 2021-06-18 08:52 | Outpatient (BNVA) | payer OTHER, SELFPAY | PROVIDERS: PCP Internal Medicine; Visit Provider Urology | DX: N28.1 Cyst of kidney, acquired (principal) ==

== ENCOUNTER 2021-06-23 14:46 | Outpatient (REF) | payer OTHER, SELFPAY ==
--- NOTE | ~2021-06-23 | CT_ITS ---
EXAMINATION: CT CHEST WITHOUT CONTRAST CLINICAL INFORMATION: Pulmonary nodule COMPARISON: CT lung screening from 03/28/2020 TECHNIQUE: Multidetector volumetric CT imaging of the chest was done. Axial MIP volume rendering provided. Sagittal and coronal reformatted images were obtained. This CT examination was performed using dose optimization techniques as appropriate, variously including the following: *Automated exposure control *Adjustment of mA and/or kV according to patient size (this includes techniques or standardized protocols for targeted exams where dose is matched to indication/reason for exam; i.e. extremities or head) *Use of iterative reconstruction technique DLP: 199 mGy-cm FINDINGS: LUNGS/PLEURA: Biapical pleural parenchymal scarring. Mild emphysematous changes. Stable 3 mm nodule in the posterior medial aspect of the right upper lobe (series 5, image 112). Stable pleural-based nodule along the posterior aspect of the right upper lobe (series 5, image 125). Stable 2 mm subpleural nodule along the posterior medial aspect of the right upper lobe (series 5, image 131). No new suspicious pulmonary nodules or masses are identified. Central airways are patent. No pneumothorax. No large pleural effusion. MEDIASTINUM: Heart is enlarged. No pericardial effusion. Coronary artery calcifications are noted. Ectatic configuration of the descending thoracic aorta. Main pulmonary artery is enlarged suggesting an element of pulmonary arterial hypertension. No enlarged lymph nodes per size criteria. Multiple subcentimeter paratracheal, precarinal, and periaortic lymph nodes are noted. Visualized portions of the thyroid are unremarkable. AXILLA: No lymphadenopathy. UPPER ABDOMEN: Exophytic hypodense focus along the medial aspect of the right renal upper pole demonstrating fluid attenuation, statistically representing a cyst. Mild fecal loading of the colon. OSSEOUS STRUCTURES: Osteopenia. Multilevel degenerative changes of the thoracolumbar spine. No large lytic or blastic lesions are noted. CT/CT chest wo con IMPRESSION: 1. Redemonstration of micro-pulmonary nodules mainly involving the right upper lobe measuring up to 3 mm in size, stable. No new suspicious pulmonary nodules or masses identified. 2. Mild enlargement of the cardiomediastinal silhouette with ectatic configuration of the descending thoracic aorta. 3. Main pulmonary artery is enlarged suggesting an element of pulmonary arterial hypertension. 4. Exophytic hypodense focus along the medial aspect of the right renal upper pole demonstrating fluid attenuation, statistically representing a cyst. 5. Osteopenia.
== END 2021-06-23 14:47 | disposition home or self-care (01) ==
LOC: HO.CT 14:46
PROVIDERS: Visit Provider Internal Medicine
DX: R91.1 Solitary pulmonary nodule (principal); Z72.0 Tobacco use
CPT/HCPCS: 71250

== ENCOUNTER → 2021-07-31 08:12 | Outpatient (REF) | payer OTHER, SELFPAY ==
--- NOTE | 2021-07-31 08:15 | CA_ITS ---
Transthoracic Echocardiogram Patient (Last, First, Middle): Guille Mercado, Gender: Male Date of : 1955 Age: 65 Procedure Date: 07/31/2021 Procedure Type: Transthoracic Echocardiogram Location: OP Height: 180.34 cm Weight: 95.26 kg BSA: 2.15 m2 Heart Rate: bpm BP: 140 / 70 mmHg X Ray Developer: TO Referring MD: Yue Miller MD Symptoms: I48.91 - Unspecified atrial fibrillation Study Quality: Fair Conclusions: - Normal left ventricular cavity size. There is mildly increased left ventricular wall thickness. The left ventricular systolic function is low normal. The visually estimated ejection fraction is between 50-55%. - There is a flattened septum in diastole ( D shaped left ventricle) consistent with right ventricular volume overload. - Moderately increased right ventricular cavity size. There is mild to moderately decreased right ventricular systolic function. - Severe biatrial enlargement. - There is mild to moderate mitral valve regurgitation. - Significantly elevated right atrial pressure. Severe pulmonary hypertension is present. Findings Left Ventricle Normal left ventricular cavity size. There is mildly increased left ventricular wall thickness. The left ventricular systolic function is low normal. The visually estimated ejection fraction is between 50-55%. There is no evidence of regional wall motion abnormalities. There is a flattened septum in diastole ( D shaped left ventricle) consistent with right ventricular volume overload. Diastolic function is indeterminate on the basis of available data. Right Ventricle Moderately increased right ventricular cavity size. There is mild to moderately decreased right ventricular systolic function. Atria Severe biatrial enlargement. Aortic Valve There is a normal trileaflet aortic valve. There is mild calcification of the aortic valve. There is no aortic valve stenosis. There is no aortic valve regurgitation. Mitral Valve There is mild anterior and posterior mitral leaflet thickening. There is mild mitral annular calcification. There is mild to moderate mitral valve regurgitation. There is no mitral valve stenosis. Pulmonic Valve The pulmonic valve is normal. There is mild pulmonic valve regurgitation. Tricuspid Valve Normal tricuspid valve structure. There is mild tricuspid valve regurgitation. Significantly elevated right atrial pressure. Severe pulmonary hypertension is present. Great Vessels All visible segments of the aorta are normal in size. The visualized portions of the pulmonary artery and branches are normal. Venous The inferior vena cava is dilated and does not collapse with inspiration. Pericardium/Pleural There is no evidence of pericardial effusion. Prior Study Comparison Significant changes compared to prior study dated: 02/14/2020. RV function mild to moderately reduced, RV volume overload, severe pulmonary hypertension. Measurements 2D Linear Measurements IVSd: 1.18 0.6-0.9/0.6-1.0 cm LVIDd: 5.39 3.9-5.3/4.2-5.9 cm LVIDd Index: 2.51 2.4-3.2/2.2-3.1 cm/m2 LVIDs: 3.99 2.0-3.6 cm LVPWd: 1.03 0.7-1.1 cm LA Diam: 5.30 2.7-3.8/3.0-4.0 cm LAIDs Index: 2.47 1.5-2.3 cm/m2 LV Mass: 293.68 67-162/88-224 g LV Mass Index: 136.60 43-95/49-115 g/m2 LVOT Diam: 2.00 3.0+(-)1.3 cm 2D Systolic Function EF 4C: 50.40 >55% EF 2C: 43.70 >55% EF BiP: 45.20 >55% Mitral Valve MV VTI: 0.59 MV Pk Ruy: 2.05 MV Mn Ruy: 0.74 MV Pk Grad: 17.00 MV Mn Grad: 3.00 PHT: 138.00 MVA PHT: 1.59 MVA Continuity: 1.13 Decel Collin: 3.94 Aortic Valve AoV Pk Ruy: 1.44 AoV Mn Ruy: 0.95 AoV VTI: 0.34 AoV Pk Grad: 8.00 Aov Mn Grad: 4.00 SONU Cont.VTI: 1.99 LVOT LVOT Pk Ruy: 0.93 LVOT Mn Ruy: 0.56 LVOT VTI: 0.21 LVOT Pk Grad: 3.00 LVOT Mn Grad: 2.00 LVOT Diam: 2.00 LVOT Area: 3.14 Right Ventricle TAPSE (mm): 19.30 TVS' Ruy: 9.46 Tricuspid Valve TR Pk Ruy: 3.26 TR Pk Grad: 43.00 RA Press: 15.00 RVSP: 58.00 Great Vessels Aorta Sinus of Valsalva: 3.55 2.0-3.[address] Ridge: 2.66 1.7-3.4 cm Ao Asc: 3.30 2.1-3.4 cm Ao Arch: 3.20 Pulmonary Valve LA Pk Ruy: 0.98 Updated in Other Vendor System with Status of Final Murtaza Alvarado MD electronically signed on 08/03/2021 5:32:26 AM with status of Final
== END ==
LOC: HO.CARD 08:12
PROVIDERS: PCP Internal Medicine; Visit Provider Internal Medicine
DX: I48.91 Unspecified atrial fibrillation (principal); I34.0 Nonrheumatic mitral (valve) insufficiency
CPT/HCPCS: 93306

== ENCOUNTER 2022-01-27 07:02 | Outpatient (REF) | payer MEDICARE, SELFPAY ==
[2022-01-27 12:28] LABS: Creatinine Urine 159.98 mg/dL; Microalbum/Creatinine Ratio Ur 11.2 ug/mg cr
[2022-01-27 14:22] LABS: MANUAL DIFF FLAG NO
[2022-01-27 14:31] LABS: Basophils Percent Auto 0.5 % (0-2); Eosinophils Absolute Auto 0.2 X10*3/uL (0.0-0.4); Eosinophils Percent Auto 2.2 % (0-4); Hematocrit 49.9 % (42.0-52.0); Hemoglobin 15.9 g/dl (14.0-18.0); Imm Gran Abs Auto 0.01 X10*3/uL (0.00-0.03); Imm Gran Pct Auto 0.1 % (0.0-0.4); Lymphocytes Absolute Auto 2.8 X10*3/uL (1.2-4.9); Lymphocytes Percent Auto 37.4 % (20-40); Mean Corpuscular HGB Conc 31.9 g/dl (31.0-36.0); Mean Corpuscular Volume 84.9 fL (80.0-98.0); Mean Platelet Volume 11.2 fL (9.4-12.4); Monocytes Absolute Auto 0.6 X10*3/uL (0.1-1.2); Monocytes Percent Auto 7.5 % (2-11); Neutrophils Absolute Auto 3.8 x10*3/uL (2.0-8.3); Neutrophils Percent Auto 52.3 % (45-73); Platelet Count 173 X10*3/uL (160-400); Red Blood Count 5.88 X10*6/uL (4.60-5.80); Red Cell Distribution Width 13.7 % (11.0-16.0); White Blood Count 7.4 X10*3/uL (4.8-10.8)
[2022-01-27 14:42] LABS: Estimated Average Glucose 131 mg/dL; Hemoglobin A1c % 6.2 %
[2022-01-27 14:50] LABS: Alanine Aminotransferase 30 U/L (0-40); Albumin Level 4.4 g/dL (3.5-5.0); Alkaline Phosphatase 74 U/L (39-117); Anion Gap 14 (12-20); Aspartate Amino Transferase 28 U/L (5-37); Bilirubin Total 1.2 mg/dL (0.0-1.0); Blood Urea Nitrogen 18 mg/dL (9-16); Calcium 9.4 mg/dL (8.4-10.2); Carbon Dioxide 28 mmol/L (22-29); Chloride 103 mmol/L (96-108); Cholesterol 185 mg/dL; Estimated Glomerular Filt Rate > 60; Glucose Fasting 125 mg/dL (60-99); HDL Cholesterol 37 mg/dL; LDL Cholesterol Calculated 134 mg/dl; Potassium 4.2 mmol/L (3.3-5.1); Sodium 141 mmol/L (135-145); Total Protein 7.3 g/dL (6.5-8.0); Triglycerides 74 mg/dL
== END 2022-01-27 07:03 | disposition home or self-care (01) ==
LOC: HO.HMGCLDS 07:02
PROVIDERS: PCP Internal Medicine; Visit Provider Internal Medicine
DX: I10 Essential (primary) hypertension (principal); I27.29 Other secondary pulmonary hypertension; I34.0 Nonrheumatic mitral (valve) insufficiency; I48.91 Unspecified atrial fibrillation; I50.810 Right heart failure, unspecified; R73.9 Hyperglycemia, unspecified
CPT/HCPCS: 36415; 80053; 80061; 82043; 83036; 85025

== ENCOUNTER → 2022-03-01 13:39 | Outpatient (BNVA) | payer MEDICARE, SELFPAY | PROVIDERS: PCP Internal Medicine; Referring Provider Internal Medicine; Visit Provider Internal Medicine Cardiovascular Disease | DX: I27.29 Other secondary pulmonary hypertension (principal); I50.810 Right heart failure, unspecified; I10 Essential (primary) hypertension | CPT/HCPCS: 93005; 99212 ==

== ENCOUNTER → 2022-03-05 07:10 | Outpatient (REF) | payer MEDICARE, SELFPAY ==
--- NOTE | 2022-03-05 07:13 | CA_ITS ---
Transthoracic Echocardiogram Patient (Last, First, Middle): Guille Mercado, Gender: Male Date of : 1955 Age: 66 Procedure Date: 03/05/2022 Procedure Type: Transthoracic Echocardiogram Location: OP Height: 180.34 cm Weight: 99.79 kg BSA: 2.20 m2 Heart Rate: 47 bpm BP: 122 / 60 mmHg [facility] Director: Referring MD: Murtaza Alvarado MD Hi Lift Operator: Sukumar Spring MD Symptoms: I27.29 - Other secondary pulmonary hypertension Study Quality: Adequate ECG Rhythm: Atrial Fibrillation Conclusions: - 1. Normal LV systolic function 2. Moderate biatrial enlargement with moderately increased RV size 3. [id number] mitral regurgitation 4. Upper limits of normal RV systolic pressure 5. No gross pericardial effusion Findings Left Ventricle Normal left ventricular size, thickness, and systolic function. The visually estimated ejection fraction is between 55-60%. Diastolic function is indeterminate on the basis of available data. Right Ventricle Moderately increased right ventricular cavity size. There is normal right ventricular systolic function. Atria Moderate biatrial enlargement. There is no evidence of interatrial shunt. Aortic Valve Normal aortic valve structure and function. There is no aortic valve stenosis. There is no aortic valve regurgitation. Mitral Valve There is mild anterior and posterior mitral leaflet thickening. There is mild to moderate mitral valve regurgitation. There is no mitral valve stenosis. Pulmonic Valve The pulmonic valve is likely normal. Tricuspid Valve Normal tricuspid valve structure. There is mild tricuspid valve regurgitation. The right ventricular systolic pressure is normal. Normal right atrial pressure. There is no evidence of pulmonary hypertension. Great Vessels All visible segments of the aorta are normal in size. The pulmonary artery was not well visualized. Venous The inferior vena cava is normal in size and collapses greater than 50% with inspiration. Pericardium/Pleural There is no evidence of pericardial effusion. Measurements 2D Linear Measurements IVSd: 1.13 0.6-0.9/0.6-1.0 cm LVIDd: 5.03 3.9-5.3/4.2-5.9 cm LVIDd Index: 2.29 2.4-3.2/2.2-3.1 cm/m2 LVIDs: 3.42 2.0-3.6 cm LVPWd: 1.14 0.7-1.1 cm LA Diam: 4.70 2.7-3.8/3.0-4.0 cm LAIDs Index: 2.14 1.5-2.3 cm/m2 LV Mass: 272.22 67-162/88-224 g LV Mass Index: 123.74 43-95/49-115 g/m2 LVOT Diam: 2.10 3.0+(-)1.3 cm 2D Systolic Function EF 4C: 58.20 >55% EF 2C: 61.70 >55% EF BiP: 59.50 >55% Mitral Valve MV Pk E: 1.54 MV Decel Time: 451.00 E'Lateral: 11.30 E'Medial: 8.05 E/E' Med: 19.10 E/E' Lat: 13.60 PHT: 132.00 MVA PHT: 1.67 Decel Grimes: 3.42 Aortic Valve AoV Pk Ruy: 1.33 AoV Mn Ruy: 0.82 AoV VTI: 0.28 AoV Pk Grad: 7.00 Aov Mn Grad: 3.00 SONU Cont.VTI: 2.13 LVOT LVOT Pk Ruy: 0.77 LVOT Mn Ruy: 0.45 LVOT VTI: 0.18 LVOT Pk Grad: 2.00 LVOT Mn Grad: 1.00 LVOT Diam: 2.10 LVOT Area: 3.46 Diastolic Function MV Pk E: 1.54 E'Medial: 8.05 E/E' Med: 19.10 E' Laterial: 11.30 E/E' Lat: 13.60 Right Ventricle TAPSE (mm): 25.40 TVS' Ruy: 11.20 Tricuspid Valve TR Pk Ruy: 2.66 TR Pk Grad: 28.00 RA Press: 8.00 RVSP: 36.00 Great Vessels Aorta Sinus of Valsalva: 3.00 2.0-3.5 cm Ao Asc: 3.30 2.1-3.4 cm Pulmonary Valve PV Pk Ruy: 1.07 Peak PV Grad: 5.00 Updated in Other Vendor System with Status of Final Sukumar Spring MD electronically signed on 03/05/2022 2:42:52 PM with status of Final
== END ==
LOC: HO.CARD 07:10
PROVIDERS: PCP Internal Medicine; Visit Provider Internal Medicine Cardiovascular Disease
DX: I27.29 Other secondary pulmonary hypertension (principal); I50.810 Right heart failure, unspecified
CPT/HCPCS: 93306

== ENCOUNTER → 2022-03-31 08:58 | Outpatient (BNVA) | payer MEDICARE, SELFPAY | PROVIDERS: PCP Internal Medicine; Visit Provider Internal Medicine Pulmonary Disease | DX: J44.9 Chronic obstructive pulmonary disease, unspecified (principal); I27.20 Pulmonary hypertension, unspecified; I48.91 Unspecified atrial fibrillation; R91.8 Other nonspecific abnormal finding of lung field; F17.210 Nicotine dependence, cigarettes, uncomplicated; Z79.01 Long term (current) use of anticoagulants | CPT/HCPCS: 99202 ==

== ENCOUNTER → 2022-04-14 08:52 | Outpatient (REF) | payer MEDICARE, SELFPAY ==
--- NOTE | ~2022-04-14 | NM_ITS ---
EXAMINATION: NM LUNG IMAGE PERFUSION CLINICAL INFORMATION: Secondary pulmonary hypertension. Right heart failure and COPD. COMPARISON: None TECHNIQUE: Following intravenous administration of 1.1 mCi 99m technetium MAA, imaging over both lungs were obtained. Ventilation study was not performed. FINDINGS: On perfusion exam, there is normal isotope activity seen throughout both lungs without any segmental or subsegmental defect. Prominent nonsegmental defects are seen in bilateral marley especially in left hilar region likely related to enlarged and prominent pulmonary arteries. NM/NM pul perfusion IMPRESSION: No perfusion defects seen. Nonsegmental defects in the hilar region especially left hilum likely related to mildly enlarged pulmonary artery.
== END ==
LOC: HO.NUCMED 08:52
PROVIDERS: PCP Internal Medicine; Visit Provider Internal Medicine Cardiovascular Disease
DX: I27.29 Other secondary pulmonary hypertension (principal); I50.810 Right heart failure, unspecified
CPT/HCPCS: 78580; A9540

== ENCOUNTER 2022-04-15 08:40 | Outpatient (REF) | payer MEDICARE, SELFPAY ==
--- NOTE | 2022-04-15 15:31 | PFT_ITS ---
Forced vital capacity 85%, FEV1 87%, FEV1/FVC ratio is 76. [id number] 87% and MVV is 85%. Post bronchodilator therapy, there is no change. Total lung capacity 85%. Residual volume 97%. Diffusion capacity 78%. CONCLUSION: Normal pulmonary function test, and there is no evidence of obstructive or restrictive pulmonary disorder. MD ORLANDO Carvalho/CELIO / [id number]
== END 2022-04-15 08:41 | disposition home or self-care (01) ==
LOC: HO.RESP 08:40
PROVIDERS: PCP Internal Medicine; Visit Provider Internal Medicine Pulmonary Disease
DX: J44.9 Chronic obstructive pulmonary disease, unspecified (principal)
CPT/HCPCS: 94060; 94727; 94729

== ENCOUNTER 2022-04-21 08:06 | Outpatient (REF) | payer MEDICARE, SELFPAY ==
[2022-04-21 11:15] LABS: MANUAL DIFF FLAG NO
[2022-04-21 11:20] LABS: Basophils Absolute Auto 0.1 X10*3/uL (0.0-0.2); Basophils Percent Auto 0.7 % (0-2); Eosinophils Absolute Auto 0.2 X10*3/uL (0.0-0.4); Eosinophils Percent Auto 1.9 % (0-4); Hematocrit 47.7 % (42.0-52.0); Hemoglobin 15.5 g/dl (14.0-18.0); Imm Gran Abs Auto 0.02 X10*3/uL (0.00-0.03); Imm Gran Pct Auto 0.2 % (0.0-0.4); Lymphocytes Absolute Auto 2.9 X10*3/uL (1.2-4.9); Lymphocytes Percent Auto 34.6 % (20-40); Mean Corpuscular HGB Conc 32.5 g/dl (31.0-36.0); Mean Corpuscular Hemoglobin 27.9 pg (27.0-33.0); Mean Corpuscular Volume 85.8 fL (80.0-98.0); Mean Platelet Volume 11.8 fL (9.4-12.4); Monocytes Absolute Auto 0.7 X10*3/uL (0.1-1.2); Monocytes Percent Auto 8.1 % (2-11); Neutrophils Absolute Auto 4.6 x10*3/uL (2.0-8.3); Neutrophils Percent Auto 54.5 % (45-73); Platelet Count 161 X10*3/uL (160-400); Red Blood Count 5.56 X10*6/uL (4.60-5.80); Red Cell Distribution Width 13.6 % (11.0-16.0); White Blood Count 8.4 X10*3/uL (4.8-10.8)
[2022-04-21 11:46] LABS: Alanine Aminotransferase 28 U/L (0-40); Albumin Level 4.4 g/dL (3.5-5.0); Alkaline Phosphatase 71 U/L (39-117); Anion Gap 12 (12-20); Aspartate Amino Transferase 26 U/L (5-37); Bilirubin Total 1.3 mg/dL (0.0-1.0); Blood Urea Nitrogen 17 mg/dL (9-16); Calcium 9.2 mg/dL (8.4-10.2); Carbon Dioxide 28 mmol/L (22-29); Chloride 104 mmol/L (96-108); Cholesterol 167 mg/dL; Estimated Glomerular Filt Rate > 60; Glucose Fasting 130 mg/dL (60-99); HDL Cholesterol 37 mg/dL; LDL Cholesterol Calculated 119 mg/dl; Potassium 4.4 mmol/L (3.3-5.1); Sodium 140 mmol/L (135-145); Total Protein 7.1 g/dL (6.5-8.0); Triglycerides 55 mg/dL
[2022-04-21 11:48] LABS: Estimated Average Glucose 140 mg/dL; Hemoglobin A1c % 6.5 %
== END 2022-04-21 08:07 | disposition home or self-care (01) ==
LOC: HO.HMGCLDS 08:06
PROVIDERS: PCP Internal Medicine; Visit Provider Internal Medicine
DX: Z00.00 Encounter for general adult medical examination without abnormal findings (principal); I27.29 Other secondary pulmonary hypertension; I34.0 Nonrheumatic mitral (valve) insufficiency; I48.91 Unspecified atrial fibrillation; I50.810 Right heart failure, unspecified; R73.9 Hyperglycemia, unspecified
CPT/HCPCS: 36415; 80053; 80061; 83036; 85025

== ENCOUNTER → 2022-05-13 09:45 | Outpatient (BNVA) | payer MEDICARE, SELFPAY | PROVIDERS: PCP Internal Medicine; Visit Provider Internal Medicine Pulmonary Disease | DX: J43.9 Emphysema, unspecified (principal); R91.8 Other nonspecific abnormal finding of lung field | CPT/HCPCS: 99212 ==

== ENCOUNTER 2022-06-22 09:15 | Outpatient (REF) | payer MEDICARE, SELFPAY ==
--- NOTE | ~2022-06-22 | CT_ITS ---
EXAMINATION: CT CHEST WITHOUT CONTRAST CLINICAL INFORMATION: Follow-up pulmonary nodules COMPARISON: Previous chest CT scans most recent June 2021 TECHNIQUE: Multidetector volumetric CT imaging of the chest was done. Axial MIP volume rendering provided. Sagittal and coronal reformatted images were obtained. This CT examination was performed using dose optimization techniques as appropriate, variously including the following: *Automated exposure control *Adjustment of mA and/or kV according to patient size (this includes techniques or standardized protocols for targeted exams where dose is matched to indication/reason for exam; i.e. extremities or head) *Use of iterative reconstruction technique DLP: 185 mGy-cm FINDINGS: LUNGS: The 2 small right upper lobe nodules axial image 151 and 138 series 7 that are stable. Scattered areas of increased peribronchial attenuation or peribronchial nodules in the upper lungs questionable for airways disease/respiratory bronchiolitis. Question mild increase in peripheral interstitial markings with interlobular septal thickening.. No endobronchial or endotracheal lesion. MEDIASTINUM: Upper normal heart size. No pericardial effusion. Shotty mediastinal lymphadenopathy. Ectasia of the proximal descending thoracic aorta measuring 3.2 cm. This is similar to previous exam. Prominent pulmonary arteries, main pulmonary artery measuring 4 cm questionable for pulmonary artery hypertension.. This is similar to previous exam. CORONARY ARTERY CALCIFICATION: Mild PLEURA: There is no pleural effusion. No pleural mass or thickening. AXILLA: No lymphadenopathy. UPPER ABDOMEN: Stable low-attenuation right renal lesion probably representing a cyst. OSSEOUS STRUCTURES: Degenerative changes of the spine. CT/CT chest wo IV con IMPRESSION: Stable pulmonary nodules. Stable dilatation of the thoracic aorta and pulmonary arteries. Question mild airways disease or respiratory bronchiolitis and increased peripheral interstitial markings with interlobular septal thickening. Fleischner guidelines were followed.
== END 2022-06-22 09:16 | disposition home or self-care (01) ==
LOC: HO.CT 09:15
PROVIDERS: PCP Internal Medicine; Visit Provider Internal Medicine Pulmonary Disease
DX: R91.8 Other nonspecific abnormal finding of lung field (principal)
CPT/HCPCS: 71250